=== PATIENT | male | born 1950 | race Caucasian/White ===

== ENCOUNTER → 2018-04-06 | Outpatient (CLI) | payer BC ==
[2018-04-06 13:58] LABS: ALT/SGPT 23 U/L (12-78); AST/SGOT 18 U/L (15-37); BLOOD UREA NITROGEN 18 mg/dl (7-18); CALCIUM 9.1 mg/dl (8.5-10.1); CARBON DIOXIDE 29 mmol/L (21-32); CHOLESTEROL 165 mg/dl (0-200); CREATININE 0.99 mg/dl (0.60-1.40); GLUCOSE 98 mg/dl (70-99); LDL CHOLESTEROL CALCULATED 94 mg/dl; POTASSIUM 4.8 mmol/L (3.5-5.1); SODIUM 138 mmol/L (136-145)
== END | disposition home or self-care (01) ==
LOC: C.LABMFLN 06:49
PROVIDERS: ATTEND Family Medicine
DX: E78.5 Hyperlipidemia, unspecified (principal); M19.90 Unspecified osteoarthritis, unspecified site; Z12.5 Encounter for screening for malignant neoplasm of prostate

== ENCOUNTER 2019-12-18 08:00 | Observation (INO) ==
--- NOTE | 2019-12-18 09:41 | Cardiology Consultation ---
Date of Consultation December 18, 2019 Assessment & Plan (1) Angina pectoris: Mr. Da Silva is a 69 year old male with a history of PAD, Arthritis, Situational Anxiety, Hyperlipidemia, Diverticulosis Coli, and Exertional Chest Pressure/ Abdominal Bloating consistent with Angina Pectoris who underwent an Abnormal Stress Test / Abnormal Post-exercise Echo images today. Earlier this year, the patient has developed and experienced an Exertional Chest Pressure and Abdominal Bloating which has been quite reproducible every time he takes a walk. Patient typically tries to walk 1-2 miles daily for his peripheral vascular disease and claudication. For the past several weeks he has developed this exertional chest pressure and abdominal bloating which makes him stop walking several times in order to complete his walks. These symptoms typically go away within a few minutes of resting. Patient exercised for 8 minutes and 3 seconds on a standard Arnoldo protocol today but did not attain target heart rate. Early in stage 2 he developed abdominal bloating and chest pressure which persisted and eventually worsened as he continued exercising. His EKG response was abnormal showing up to 4 mm horizontal and downsloping ST segment depression in the infero-lateral leads, and ST elevations in leads aVR, aVL, and V1. EKG changes and symptoms persisted approximately 8 to 9 minutes into recovery. Post exercise echo images showed apical hypokinesis and overall systolic function didn't appear to be as vigorous as would be expected. Dr. Riggs confirmed abnormal stress test findings and agrees. We discussed these findings at length with the patient and our suspicion that he has coronary artery disease. We recommend pursuing further evaluation with a Cardiac Catheterization -- Patient agrees to proceed. We contacted Dr. Richard who will perform the catheterization later this morning. Labs ordered. We will make further recommendations at the time of his catheterization. (2) Abnormal stress ECG with treadmill: -- Left Heart Catheterization / Coronary Angiography. (3) Chest pressure: -- Consistent with Angina Pectoris. -- Cardiac Catheterization. -- Continue Aspirin 81 mg daily. -- Recommend stopping Pravastatin and switching to high intensity statin therapy. -- Start Atorvastatin or Crestor at higher dose. -- If CAD present on catheterization - he will benefit with beta blockade and an ACEI or ARB. (4) Hyperlipidemia: -- Recommend switching to high intensity statin therapy as outlined above. Present on Admission?: Yes History of Present Illness Reason for Consultation: -- Exertional Chest Pressure, Abdominal Bloating. -- Abnormal Exercise Stress Test 12/18/2019. Requesting Physician: Bernardo De La Cruz DO Attending Physician: Smith Richard MD History of Present Illness Mr. Da Silva is a 69 year old male with a history of PAD, Arthritis, Situational Anxiety, Hyperlipidemia, and Diverticulosis Coli who was referred to [facility] for an outpatient exercise stress test today. Since earlier in this year, the patient has developed an Exertional Chest Pressure and Abdominal Bloating which has been quite reproducible every time he takes a walk. Patient typically tries to walk 1-2 miles daily for his peripheral vascular disease and claudication. For the past several weeks he has developed this exertional chest pressure and abdominal bloating which makes him stop walking, and the symptoms typically go away within a few minutes of resting. Patient denies any radiation of the discomfort, and he denies any associated symptoms. He specifically denies any associated nausea, vomiting, dyspnea, or rolly diaphoresis. Patient exercised for 8 minutes and 3 seconds on a standard Arnolod protocol today but did not attain target heart rate. Early end-stage 2 he developed abdominal bloating and chest pressure which persisted and eventually worsened as he continued exercising. His EKG response was abnormal showing up to 4 mm horizontal and downsloping ST segment depression in the infero-lateral leads, and ST elevations in leads aVR, aVL, and V1. EKG changes and symptoms persisted approximately 8 to 9 minutes into recovery. Post exercise echo images showed apical hypokinesis and overall systolic function didn't appear to be as vigorous as would be expected. Patient denies any history of peptic ulcer disease or bleeding disorders. He is compliant with his medications and has not had any adverse side effects. Allergies Allergy/AdvReac Type Severity Reaction Status Date / Time No Known Allergies Allergy Verified 12/12/19 14:12 Home Medications Home Medications Medication Instructions Recorded Confirmed Type aspirin 81 mg chewable tablet 81 mg PO DAILY #90 tab 03/28/19 12/18/19 Rx lorazepam 0.5 mg tablet 0.5 mg PO DAILY PRN #30 tab 03/28/19 12/18/19 Rx pravastatin 20 mg tablet 20 mg PO PM #90 tab 04/04/19 12/18/19 Rx triamcinolone acetonide 0.1 % 1 appln TOP BID #15 gm 08/08/19 12/18/19 Rx topical cream omeprazole 20 mg capsule,delayed 20 mg PO BID #30 cap 12/16/19 12/18/19 Rx release Patient History Social History Preferred Language: Russian Clinical Account Specialist Required: No Beliefs That Will Affect Care: None Current Living Situation: Family Feels Safe at Home: Yes Safety Concerns: Feels Safe At This Time Smoking Status: Never smoker Hx Alcohol Use: No Hx Substance Use: No Physical Exam Physical Exam: GENERAL: Patient in no acute distress. HEENT: Head is atraumatic, normocephalic. EOM's intact. Facies symmetric. No perioral cyanosis. NECK: No JVD. JVP is at the level of the clavicle sitting upright. Carotid upstrokes are + 2 bilaterally without obvious bruits. CHEST/LUNGS: Clear to auscultation throughout all lung bhandari. No wheezes, rales, or crackles. CVS: S1 and S2 are regular without obvious murmurs, gallops, or rubs. PMI is nondisplaced. No lifts, heaves, or thrills. No abdominal aortic or renal bruits. ABDOMINAL EXAM: Bowel sounds are present. No masses, organomegaly, or tenderness. EXTREMITIES: No clubbing or cyanosis. No edema. Intact radial pulses bilaterally. Timmy's test positive for both ulnar and radial reflow at the right wrist. NEUROLOGIC EXAM: Patient is awake, alert, and oriented. Pleasant and cooperative. Answers questions appropriately. Speech is clear. Normal movement in all 4 extremities. Gait pattern is unremarkable. Exercise Stress Test -- Abnormal as described in the HPI. PG Care Time/CCT Total # of Minutes Spent Total Time Spent with Patient: Total time spent is greater than 50% in coordination of care (as documented) at patient's floor/unit and/or counseling patient: Coding Level of Care Code 85107 Office/OBS Consult Lvl 5 Diagnoses Angina pectoris I20.9 Abnormal stress ECG with treadmill R94.39 Chest pressure R07.89 Hyperlipidemia E78.5 Time Spent (min) 75
[2019-12-18 10:56] LABS: INR 1.1 (0.9-1.1); Prothrombin Time 11.4 Seconds (9.0-12.0)
[2019-12-18 10:57] LABS: Hemoglobin 13.5 g/dL (14.0-18.0); Mean Corpuscular Hemoglobin 30.3 pg (25-34); Mean Corpuscular Volume 89.7 fL (80-100); Mean Platelet Volume 10.2 fL (7.4-10.4); Platelet Count 188 K/uL (130-400); RDW Coefficient of Variation 12.2 % (11.5-14.5); RDW Standard Deviation 39.8 fL (36.4-46.3); Red Blood Count 4.46 M/uL (4.7-6.1); White Blood Count 5.23 K/uL (4.8-10.8)
[2019-12-18 10:59] LABS: Mean Corpuscular Hgb Conc 33.8 g/dL (32-36)
[2019-12-18 11:03] LABS: BUN Creatinine Ratio 15.1 (10-20); Calcium 8.8 mg/dl (8.5-10.1); Creatinine Clr Calc Pharmacy 84.4 ml/min; Est GFR (Non-African American) 84.6; Potassium 4.3 mmol/L (3.5-5.1)
[2019-12-18] MEDS ORDERED: MIDAZOLAM HCL 1 MG/ML 2ML VIAL ONE (11:16)
[2019-12-18] MEDS ORDERED: NITROGLYCERIN/D5W 100MCG/ML 20ML SYR ONE (11:16)
[2019-12-18] MEDS ORDERED: NiCARDipine HCL INJ 2.5 MG/ML 10 ML AMP ONE (11:16)
[2019-12-18] MEDS ORDERED: fentaNYL citrate 100 MCG/2 ML VIAL ONE (11:16)
[2019-12-18] MEDS ORDERED: HEPARIN (PORCINE) 1000 UNIT/ML 10 ML (CATH LAB USE ONLY) ONE (11:16)
--- NOTE | 2019-12-18 11:39 | Pre Anesthesia Assessment ---
Date of Service December 18, 2019 Pre Sedation Assessment Vital Signs Temp Pulse Resp BP Pulse Ox 12/18/19 09:43 98.1 F 62 18 132/84 96 Cardiovascular RRR, no murmur, no edema Respiratory normal respiratory effort, lungs clear to auscultation Pre-Sedation Airway Assessment Smoking Status: Never smoker Hx Sleep Apnea: No Hx Difficult Intubation: No Short, Thick Neck: No Thyromental Distance: > or= 3.5 Finger Breadths Oral Cavity: + WNL Mallampati Class: II ASA: ASA3 NPO Status Date of Last Intake of Fluids: 12/17/19 Time of Last Intake of Fluids: 20:00 Date of Last Intake of Solid Food: 12/17/19 Time of Last Intake of Solid Foods: 20:00 Procedure Planning Contraindications for Sedation: none Current Medications Reviewed: Yes Notes The planned sedation has been discussed with the patient. Informed Consent was obtained. I have identified the patient, determined the appropriateness of sedation and have assessed the patient immediately prior to the procedure. All medicine(s) and interventions are by my order.
--- NOTE | 2019-12-18 12:09 | Post Anesthesia Assessment ---
Date of Service December 18, 2019 Post Sedation Assessment Vital Signs Temp Pulse Resp BP Pulse Ox 12/18/19 09:43 98.1 F 62 18 132/84 96 Recovery Score Activity: Moves 4 extremities Respiration: Deep Breath/Cough Circulation: +/-20% PreAnes Value Consciousness: Fully Awake Oxygen Saturation: O2 needed for >90% Discharge Sedation Level of Care: Fast Track Phase II Post Sedation Plan On clinical assessment, the patient appears to have tolerated the sedation without complications. Patient is recovering as anticipated. Patient will continue to be monitored by nursing and may be discharged when sedation discharge criteria are met per below protocol. Upon Completions of procedure up to 15 minutes continue every 5 minute vital signs and the P.A.R. score; then discharge to a Phase I or Fast Track to Phase II per the following guidelines: * Discharge Patient to appropriate Phase II area if PAR is 8 or greater or return to pre- procedure baseline. The post - procedure orders will be as directed. * If PAR score is less than 8 or not return to pre-procedure baseline then patient will follow Phase I monitoring till PAR is reached for Phase II. The Phase I may be done in procedure room or may call to secure a Phase I area. * If naloxone or flumazenil are used for reversal, hold in Phase I for continued monitoring from when last reversal dose was given for a minimum of 60 minutes or longer pending the nurse and/or physician discretion of patient condition before discharge to Phase II. Please call the Sedation Physician to re-evaluate and complete post-note for discharge to Phase II area. Do NOT discharge from procedure sedation or Phase 1 until post- sedation evaluation note is complete by procedure /sedation MD Sedation Discharge Instructions to be given to the patient at discharge to home.
--- NOTE | 2019-12-18 12:14 | Cardiac Catheterization ---
[facility] Data: [employer] Cardiac Status Clinical evaluation leading to the procedure CAD Presenation: Positive Stress Test and Unstable angina Anginal Classification: CCS III Heart Failure: No Cardiogenic Shock within 24 Hours: No Cardiac Arrest within 24 Hours: No Imaging Studies Past 6 Months: Yes Stress Studies Past 6 Months: Yes Standard Exercise Test: Yes - Positive and Risk/Extent of Ischemia (High) Diagnostic Physicians Name: Smith Richard MD Status: Urgent Closure Device Percutaneous Entry Location: Radial Closure Device: Radial Band Recommendations: CABG Intraprocedure Events Significant Disection: No Perforation: No Cardiac Cath Procedure Full Procedure Date December 18, 2019 Pre-Procedure Diagnosis Pre-Procedure Diagnosis: Positive Stress Test AUC Score AUC Score: 8 Post-Procedure Diagnosis Post-Procedure Diagnosis: Severe CAD and Normal Intracardiac Pressures Procedure(s) Performed Procedure(s) Performed: Coronary Angiography and Left Heart Cath [facility] Customer Service Smith Richard MD Parking Lot Attendant And Cashier(s) Smuck Estimated Blood Loss Estimated Blood Loss: 10 Medication(s) Medication(s): Fentanyl, Heparin, Lidocaine 1%, Nicardipine, Nitroglycerin and Versed Summary of Findings Indication: Exertional angina, high risk stress test Access: 6 Fr right radial artery Catheters: [place], pigtail Findings: LM -calcified, luminal irregularities, LAD -heavily calcified 95% eccentric plaque at ostial LAD, remainder of LAD is a large caliber vessel without significant disease and CLEMENTE II flow in the distal aspect. Circumflex -heavily calcified, subtotal proximal occlusion. Distal vessel fills retrograde via right to left collaterals. RCA -dominant, large caliber vessel, mid segment luminal irregularities, 30 to 40% distal stenosis, provides right to left collaterals LVEDP -0 Arterial Closure: TR band Summary: 1. Severe multivessel coronary artery disease -95% eccentric, heavily calcified ostial LAD Subtotal proximal circumflex occlusion. Distal vessel fills slowly via right to left collaterals 2. Normal intracardiac filling pressure Recommendations: High risk, heavily calcified multivessel disease with good distal targets. Rec ommend evaluation for bypass surgery at a tertiary center. Hemodynamics Rest Ao:: 96/65/105 Final Ao: 104/68/84 LV: 101/0 Recommendations Recommendations: CABG Specimens Specimens: None Radiation Exposure (mGy) 954 Contrast (mls) 30 Fluids (cc crystalloids) Fluids (cc crystalloids): 57 Drains Drains: None Anesthesia Moderate Procedural Complication(s) None Disposition Recovery Room\PACU I attest to the content of the Intraoperative Record and any orders documented therein. Any exceptions are noted below. [facility] Card Cath Procedure Codes Cardiac Catheterization Procedure 1: Cardiovascular Cath Procedures: 10632 Coronaries and LHC (+/-LV) Moderate Sedation Procedure 1: Sedation/Anesthesia: 02361 Mod Sedation by the same physician;Init15 Min Child Age 5 & Up PG Care Time/CCT Total # of Minutes Spent Total Time Spent with Patient: Total time spent is greater than 50% in coordination of care (as documented) at patient's floor/unit and/or counseling patient:
[2019-12-18] MEDS ORDERED: HEPARIN 25000 UNIT/500 ML D5W IV ONE (13:02)
[2019-12-18] MEDS ORDERED: ONDANSETRON INJ 2 MG/ML 2 ML VIAL IV PRN (13:06)
[2019-12-18] MEDS ORDERED: ASPIRIN 81 MG CHEW ONE (13:08)
[2019-12-18] MEDS ORDERED: ASPIRIN 325 MG ECTAB PO ONE (13:09)
[2019-12-18] MEDS ORDERED: HEPARIN SODIUM/DEXTROSE 25,000 UNITS/500 ML BAG IV SCH (13:45)
[2019-12-18] MEDS ORDERED: Heparin IV Low Dose *NO* Bolus IV SCH (13:45)
--- NOTE | 2019-12-18 13:46 | Discharge Summary ---
Date of Service December 18, 2019 Admission HPI Per Admitting Provider Mr. Da Silva is a 69 year old male with a history of PAD (LT popliteal occlusion with stable claudication), Arthritis, Situational Anxiety, Hyperlipidemia, and Exertional Chest Pressure/ Abdominal Bloating consistent with Angina Pectoris who presented today for catheterization after abnormal high risk stress test. Stress today--- Patient exercised for 8 minutes and 3 seconds on a standard Arnoldo protocol today but did not attain target heart rate. Early in stage 2 he developed abdominal bloating and chest pressure which persisted and eventually worsened as he continued exercising. His EKG response was abnormal showing up to 4 mm horizontal and downsloping ST segment depression in the infero-lateral leads, and ST elevations in leads aVR, aVL, and V1. EKG changes and symptoms persisted approximately 8 to 9 minutes into recovery. Post exercise echo images showed apical hypokinesis and overall systolic function didn't appear to be as vigorous as would be expected. Specialty Data Specialty Data Cardiac catheterization: 1. Severe multivessel coronary artery disease -95% eccentric, heavily calcified ostial LAD Subtotal proximal circumflex occlusion. Distal vessel fills slowly via right to left collaterals 2. Normal intracardiac filling pressure Discharge Data Procedures Performed Operation Date: 12/18/19 11:00 Actual Procedures p Cath, Left with Cors and Vent - Berto Richard MD s Cineradiography w/Routine Exam - Berto Richard MD Hospital Course (1) Angina pectoris: Underwent cardiac catheterization via right radial artery. Found to have critical multivessel disease involving ostial LAD and occluded proximal circumflex. CABG recommended and case discussed with Dr. Spaulding from [facility] who agreed to care for patient on transfer. Patient feeling well post catheterization. Chest pain free and hemodynamically stable. TR band in place with no apparent access site complications. Transferred by ground on heparin. Discharge Instructions Home Medications aspirin 81 mg chewable tablet 81 mg PO DAILY #90 tab 03/28/19 [Rx Confirmed 12/18/19] lorazepam 0.5 mg tablet 0.5 mg PO DAILY PRN #30 tab 03/28/19 [Rx Confirmed 12/18/19] pravastatin 20 mg tablet 20 mg PO PM #90 tab 04/04/19 [Rx Confirmed 12/18/19] triamcinolone acetonide 0.1 % topical cream 1 appln TOP BID #15 gm 08/08/19 [Rx Confirmed 12/18/19] omeprazole 20 mg capsule,delayed release 20 mg PO BID #30 cap 12/16/19 [Rx Confirmed 12/18/19] Active Medications Aspirin (Ecotrin) 325 mg PO ONE ONE Stop: 12/18/19 13:10 Atorvastatin Calcium (Lipitor) 80 mg PO QAM MIRTA Stop: 01/17/20 13:14 Sodium Chloride (Nss 1000ml) 1,000 mls @ 100 mls/hr IV .Q10H MIRTA Stop: 12/18/19 20:44 Heparin Sodium/Dextrose (Heparin Sodium/Dextrose) 25,000 units in 500 mls @ 19 mls/hr IV .Q24H MIRTA; Protocol Stop: 01/17/20 13:44 Metoprolol Tartrate (Lopressor) 25 mg PO BID MIRTA Stop: 01/17/20 20:59 Ondansetron HCl (Zofran) 4 mg IV Q6H PRN PRN Reason: Nausea And Vomiting Stop: 01/17/20 13:05 Coding Level of Care Code 91984 OBS Care - Discharge Diagnoses Angina pectoris I20.9
[2019-12-18] MEDS ORDERED: SODIUM CHLORIDE 0.9% 1000ML 1,000 ML IV SCH (14:00)
[2019-12-18] MEDS ORDERED: ATORVASTATIN 40 MG TAB PO SCH (14:00)
[2019-12-18] MEDS ORDERED: METOPROLOL TARTRATE 25 MG TAB PO SCH (21:00)
[2019-12-19] MEDS ORDERED: ASPIRIN 81 MG ECTAB PO SCH (09:00)
== END 2019-12-18 14:45 | disposition short-term general hospital (02) ==
LOC: CPL 08:00 → 1E 08:00